=== PATIENT | male | born 1955 | race Caucasian/White ===

== ENCOUNTER 2018-08-16 02:41 | Inpatient (IN) | payer OTHER ==
[2018-08-16] MEDS ORDERED: Sodium Chloride 0.9% 10 ML Syringe FLUSH PRN (03:07)
[2018-08-16] MEDS ORDERED: Acetaminophen 500 MG Tab PO ONE (03:10)
[2018-08-16] MEDS ORDERED: Sodium Chloride 0.9% 500 ML IV ONE (03:19)
[2018-08-16 04:00] LABS: CHLORIDE,CL 105 mmol/L (98-107); SODIUM,NA 145 mmol/L (136-145)
[2018-08-16 04:09] LABS: ANION GAP 14.9 mmol/L (10-20)
[2018-08-16] MEDS ORDERED: cefTRIAXone 2 GM Vial IVPUSH ONE (04:28)
--- NOTE | 2018-08-16 05:45 | EDM.PDOC ---
ED HPI GENERAL MEDICAL PROBLEM - General Chief Complaint: Chest Pain Stated Complaint: Chest Pain / Chills Time Seen by Provider: 08/16/18 02:57 Source of Information: Reports: Patient History Limitations: Reports: No Limitations - History of Present Illness INITIAL COMMENTS - FREE TEXT/NARRATIVE: Pt. presents to ER with complaints of fever, chills, and respirophasic chest discomfort as well as erythema to his R medial ankle. Pt. states that he has a history of cellulitis in this area of the ankle in the past and states that it was treated with oral antibiotics as an outpatient. Pt. states that the area is always slightly erythematous, but he states over the past several days the area has become exquisitely tender, firm and warm to the touch. He states that he developed chills and rigors early this AM. Pt. states that he had a cough last week as well, however the patient does not feel that this is the case. He states that when the rigors started this AM and the chest discomfort started at about 8 PM last night. He states that the chest discomfort is worse with deep breathing and movement. Pt. states that he was down in [place] in various areas the second week of this month for work. 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 He states that he was quite run down after this trip which he attributed to long days, driving, and camping outside. Pt. states that he work at about 2 this AM, profusely diaphoretic and chilled. He immediately came to the ER. Denies any productive cough today. No radiation of the pain into the jaw, arms, neck or back. Denies any nausea, vomiting, or diarrhea. No abdominal pain. Denies dysuria. No pyuria or hematuria. Denies any rash or skin structure abnormality other than to that of the medial ankle. Onset Date: 08/15/18 Location: Reports: Chest, Lower Extremity, Right Treatments TECHNICAL MGR: Reports: Aspirin Chest Pain Score (Numeric/FACES): 7 - Related Data Allergies Allergy/AdvReac Type Severity Reaction Status Date / Time HAY FEVER Allergy Other Uncoded 08/16/18 02:56 Home Meds: Home Meds Aspirin [Halfprin] 81 mg PO DAILY 10/29/17 [History] Mometasone Furoate [Nasonex] 1 spray NASBOTH DAILY 10/29/17 [History] Naproxen Sodium [Aleve] 220 mg PO BID PRN 10/29/17 [History] atorvaSTATin [Lipitor] 10 mg PO BEDTIME 10/29/17 [History] Past Medical History HEENT History: Reports: Allergic Rhinitis, Hard of Hearing Cardiovascular History: Reports: Arrhythmia, High Cholesterol Other Cardiovascular History: Staes remote HX of arrhythmias years ago Respiratory History: Reports: TB Gastrointestinal History: Reports: GERD, Other (See Below) Other Gastrointestinal History: DYSPHAGIA Genitourinary History: Reports: None Musculoskeletal History: Reports: Other (See Below) Other Musculoskeletal History: ARTHRALGIA. PLANTAR FASCIITIS Neurological History: Reports: Migraines Psychiatric History: Reports: None Endocrine/Metabolic History: Reports: Obesity/BMI 30+ Hematologic History: Reports: None Immunologic History: Reports: None Oncologic (Cancer) History: Reports: None, Squamous Cell Carcinoma Dermatologic History: Reports: Other (See Below) Other Dermatologic History: ONYCHOMYCOSIS - Past Surgical History Head Surgeries/Procedures: Reports: None Cardiovascular Surgical History: Reports: None GI Surgical History: Reports: None Endocrine Surgical History: Reports: None Musculoskeletal Surgical History: Reports: Joint Replacement, Knee Replacement Social & Family History - Tobacco Use Smoking Status *Q: Never Smoker - Recreational Drug Use Recreational Drug Use: No ED ROS GENERAL - Review of Systems Review Of Systems: See Below Constitutional: Reports: Fever, Chills, Malaise, Diaphoresis HEENT: Reports: No Symptoms. Denies: Rhinitis, Sinus Problem, Throat Pain, Throat Swelling, Vertigo Respiratory: Reports: Pleuritic Chest Pain, Cough Cardiovascular: Reports: Chest Pain. Denies: Dyspnea on Exertion, Lightheadedness, Orthopnea, Palpitations, PND, Syncope Endocrine: Reports: No Symptoms GI/Abdominal: Reports: No Symptoms : Reports: No Symptoms. Denies: Dysuria, Flank Pain, Hematuria, Urgency Musculoskeletal: Reports: Other (See HPI) Skin: Reports: Erythema (R medial ankle) Neurological: Reports: No Symptoms Psychiatric: Reports: No Symptoms Hematologic/Lymphatic: Reports: No Symptoms Immunologic: Reports: No Symptoms ED EXAM, GENERAL - Physical Exam Exam: See Below Exam Limited By: No Limitations General Appearance: Alert, WD/WN, No Apparent Distress Eye Exam: Bilateral Eye: EOMI, PERRL Throat/Mouth: Normal Inspection, Normal Lips, Normal Teeth, Normal Gums, Normal Oropharynx, Normal Voice, No Airway Compromise Head: Atraumatic, Normocephalic Neck: Normal Inspection, Supple, Non-Tender, Full Range of Motion Respiratory/Chest: No Respiratory Distress, Normal Breath Sounds, Other ( crackles in the bases, increased chest tenderness with palpation of the anterior chest) Cardiovascular: Normal Peripheral Pulses, Regular Rate, Rhythm, No Edema, No Murmur Peripheral Pulses: 3+: Radial (L), Radial (R), Dorsalis Pedis (L), Dorsalis Pedis (R) GI/Abdominal: Normal Bowel Sounds, Soft, Non-Tender, No Organomegaly, No Distention, No Mass (Male) Exam: Deferred Rectal (Males) Exam: Deferred Back Exam: Normal Inspection, Full Range of Motion Extremities: Leg Pain, Increased Warmth, Redness, Other (area of confluent erythema noted and outlined in ink to R medial ankle. No obvious abscess formation. Area is quite tender to palpation.) Neurological: Alert, Oriented, CN II-XII Intact, Normal Cognition, Normal Gait, Normal Reflexes, No Motor/Sensory Deficits Psychiatric: Normal Affect, Normal Mood Skin Exam: Erythema (as above) Lymphatic: No Adenopathy EKG INTERPRETATION Rhythm: NSR Platina: Normal P-Wave: Present QRS: Normal ST-T: Normal QT: Normal EKG Interpretation Comments: Initial EKG quality was poor due to patient movement/rigors. The computer indicated a possible old septal infarct but this was not evident on the repeat exam. He unfortunately has not had any previous EKG in the clinic. Course - Vital Signs Last Recorded V/S: Last Vital Signs Temp 39.4 C H 08/16/18 04:22 Pulse 88 08/16/18 04:22 Resp 18 08/16/18 04:22 BP 144/78 H 08/16/18 04:22 Pulse Ox 93 L 08/16/18 04:22 - Orders/Labs/Meds Orders: Active Orders 24 hr Category Date Time Status Patient Status [ADT] Routine ADT 08/16/18 05:09 Active EKG Documentation Completion [RC] STAT Care 08/16/18 03:08 Active EKG Documentation Completion [RC] STAT Care 08/16/18 04:42 Active Chest 2V [CR] Stat Exams 08/16/18 03:07 Taken CULTURE BLOOD [BC] Stat Lab 08/16/18 03:13 Results CULTURE BLOOD [BC] Stat Lab 08/16/18 04:06 Received Sodium Chloride 0.9% [Saline Flush] Med 08/16/18 03:07 Active 10 ml FLUSH ASDIRECTED PRN Blood Culture x2 Reflex Set [OM.PC] Stat Oth 08/16/18 03:08 Ordered Peripheral IV Insertion Adult [OM.PC] Routine Oth 08/16/18 03:08 Ordered Medication Orders Acetaminophen (Tylenol Extra Strength) 1,000 mg PO Q6H PRN PRN Reason: Fever Ceftriaxone Sodium (Rocephin) 2 gm IVPUSH DAILY MARY Enoxaparin Sodium (Lovenox) 40 mg SUBCUT DAILY MARY Ibuprofen (Motrin) 600 mg PO Q6H PRN PRN Reason: Pain/Fever Sodium Chloride (Saline Flush) 10 ml FLUSH ASDIRECTED PRN PRN Reason: Keep Vein Open Labs: Laboratory Tests 08/16/18 08/16/18 08/16/18 Range/Units 03:13 03:13 03:24 WBC (4.0-10.0) x10^3/uL RBC (4.5-6.0) x10^6/uL Hgb (14.0-18.0) g/dL Hct (40.0-52.0) % MCV (78.0-93.0) fL MCH (26.0-32.0) pg MCHC (32.0-36.0) g/dL RDW Coeff of Jon (10.0-15.0) % Plt Count (130-400) x10^3/uL Add Manual Diff Neutrophils % (Manual) (50-80) % Band Neutrophils % (0-6) % Reactive Lymphs % (0) % Monocytes % (Manual) (2-11) % Eosinophils % (Manual) (0-4) % Vacuolated Monocytes Toxic Granulation Platelet Estimate Ovalocytes PT 9.9 L (10.0-12.8) SEC INR 0.9 L (2.0-3.5) Sodium 145 (136-145) mmol/L Potassium 3.9 (3.5-5.1) mmol/L Chloride 105 (98-107) mmol/L Carbon Dioxide 29 (21-32) mmol/L Anion Gap 14.9 (10-20) mmol/L BUN 16 (7-18) mg/dL Creatinine 1.0 (0.70-1.30) mg/dL Est Cr Clr Drug Dosing TNP Estimated GFR (MDRD) > 60 Glucose 97 (74-106) mg/dL Lactic Acid (0.4-2.0) mmol/L Calcium 8.9 (8.5-10.1) mg/dL Corrected Calcium 9.06 (8.5-10.1) mg/dL Phosphorus 3.7 (2.6-4.7) mg/dL Magnesium 1.8 (1.8-2.4) mg/dL Total Bilirubin 1.0 (0.2-1.0) mg/dL AST 18 (15-37) U/L ALT 32 (16-63) U/L Alkaline Phosphatase 94 (46-116) U/L Troponin I < 0.017 (<=0.056) ng/mL C-Reactive Protein 1.4 H (<=0.9) mg/dL Total Protein 7.9 (6.4-8.2) g/dL Albumin 3.8 (3.4-5.0) g/dL Globulin 4.1 Albumin/Globulin Ratio 0.93 Urine Color Yellow (YELLOW) Urine Appearance Clear (CLEAR) Urine pH 7.0 (5.0-8.0) Ur Specific [place] 1.020 Urine Protein Negative (NEGATIVE) mg/dL Urine Glucose (UA) Negative (NEGATIVE) mg/dL Urine Ketones Negative (NEGATIVE) mg/dL Urine Occult Blood Negative (NEGATIVE) Urine Nitrite Negative (NEGATIVE) Urine Bilirubin Negative (NEGATIVE) Urine Urobilinogen 0.2 (0.2) EU/dL Ur Leukocyte Esterase Negative (NEGATIVE) Urine RBC 0-5 (NOT SEEN) /HPF Urine WBC 0-5 (NOT SEEN) /HPF Ur Squamous Epith Cells Rare (NEGATIVE) /HPF Amorphous Sediment Few Urine Bacteria Not seen (NEGATIVE) /HPF Urine Mucus Not seen (NEGATIVE) /LPF 08/16/18 08/16/18 Range/Units 04:06 04:06 WBC 18.4 H (4.0-10.0) x10^3/uL RBC 5.17 (4.5-6.0) x10^6/uL Hgb 15.0 (14.0-18.0) g/dL Hct 44.9 (40.0-52.0) % MCV 86.8 (78.0-93.0) fL MCH 29.0 (26.0-32.0) pg MCHC 33.4 (32.0-36.0) g/dL RDW Coeff of Jon 13.7 (10.0-15.0) % Plt Count 249 (130-400) x10^3/uL Add Manual Diff Yes Neutrophils % (Manual) 85 H (50-80) % Band Neutrophils % 2 (0-6) % Reactive Lymphs % 5 H (0) % Monocytes % (Manual) 7 (2-11) % Eosinophils % (Manual) 1 (0-4) % Vacuolated Monocytes Rare Toxic Granulation Rare Platelet Estimate Adequate Ovalocytes Rare PT (10.0-12.8) SEC INR (2.0-3.5) Sodium (136-145) mmol/L Potassium (3.5-5.1) mmol/L Chloride (98-107) mmol/L Carbon Dioxide (21-32) mmol/L Anion Gap (10-20) mmol/L BUN (7-18) mg/dL Creatinine (0.70-1.30) mg/dL Est Cr Clr Drug Dosing Estimated GFR (MDRD) Glucose (74-106) mg/dL Lactic Acid 1.7 (0.4-2.0) mmol/L Calcium (8.5-10.1) mg/dL Corrected Calcium (8.5-10.1) mg/dL Phosphorus (2.6-4.7) mg/dL Magnesium (1.8-2.4) mg/dL Total Bilirubin (0.2-1.0) mg/dL AST (15-37) U/L ALT (16-63) U/L Alkaline Phosphatase (46-116) U/L Troponin I (<=0.056) ng/mL C-Reactive Protein (<=0.9) mg/dL Total Protein (6.4-8.2) g/dL Albumin (3.4-5.0) g/dL Globulin Albumin/Globulin Ratio Urine Color (YELLOW) Urine Appearance (CLEAR) Urine pH (5.0-8.0) Ur Specific [place] Urine Protein (NEGATIVE) mg/dL Urine Glucose (UA) (NEGATIVE) mg/dL Urine Ketones (NEGATIVE) mg/dL Urine Occult Blood (NEGATIVE) Urine Nitrite (NEGATIVE) Urine Bilirubin (NEGATIVE) Urine Urobilinogen (0.2) EU/dL Ur Leukocyte Esterase (NEGATIVE) Urine RBC (NOT SEEN) /HPF Urine WBC (NOT SEEN) /HPF Ur Squamous Epith Cells (NEGATIVE) /HPF Amorphous Sediment Urine Bacteria (NEGATIVE) /HPF Urine Mucus (NEGATIVE) /LPF Meds: Medications Generic Name Dose Route Start Last Admin Trade Name Freq PRN Reason Stop Dose Admin Acetaminophen 1,000 mg 08/16/18 06:04 Tylenol Extra Strength PO Q6H PRN Fever Ceftriaxone Sodium 2 gm 08/17/18 05:00 Rocephin IVPUSH DAILY MARY Enoxaparin Sodium 40 mg 08/16/18 08:00 Lovenox SUBCUT DAILY MARY Ibuprofen 600 mg 08/16/18 06:05 Motrin PO Q6H PRN Pain/Fever Sodium Chloride 10 ml 08/16/18 03:07 Saline Flush FLUSH ASDIRECTED PRN Keep Vein Open Discontinued Medications Generic Name Dose Route Start Last Admin Trade Name Freq PRN Reason Stop Dose Admin Acetaminophen 1,000 mg 08/16/18 03:10 08/16/18 03:25 Tylenol Extra Strength PO 08/16/18 03:11 1,000 mg ONETIME ONE Administration Ceftriaxone Sodium 2 gm 08/16/18 04:28 08/16/18 04:34 Rocephin IVPUSH 08/16/18 04:29 2 gm STAT ONE Administration Sodium Chloride 500 mls @ 500 mls/hr 08/16/18 03:19 08/16/18 03:35 Normal Saline IV 08/16/18 04:18 500 mls/hr ONETIME ONE Administration - Radiology Interpretation Free Text/Narrative:: Atelectasis noted to both lower lobes. No obvious infiltrate, failure pattern, or pleural effusion noted. - Re-Assessments/Exams Free Text/Narrative Re-Assessment/Exam: Pt. was given rocephin 2 gm IV. He was given NS 1 liter IV in ER and was given acetaminophen 1 gm orally. He reported feeling somewhat better at time of admission. Departure - Departure Time of Disposition: 05:30 Disposition: Admitted As Inpatient 67 Clinical Impression: Pneumonia, Cellulitis of ankle - Discharge Information - My Orders Last 24 Hours: My Active Orders 08/16/18 03:07 Chest 2V [CR] Stat Sodium Chloride 0.9% [Saline Flush] 10 ml FLUSH ASDIRECTED PRN 08/16/18 03:08 EKG Documentation Completion [RC] STAT Blood Culture x2 Reflex Set [OM.PC] Stat Peripheral IV Insertion Adult [OM.PC] Routine 08/16/18 03:13 CULTURE BLOOD [BC] Stat 08/16/18 04:06 CULTURE BLOOD [BC] Stat 08/16/18 04:42 EKG Documentation Completion [RC] STAT 08/16/18 05:09 Patient Status [ADT] Routine - Assessment/Plan Admission H&P: Please use this note as an admission H&P Last 24 Hours: My Active Orders 08/16/18 03:07 Chest 2V [CR] Stat Sodium Chloride 0.9% [Saline Flush] 10 ml FLUSH ASDIRECTED PRN 08/16/18 03:08 EKG Documentation Completion [RC] STAT Blood Culture x2 Reflex Set [OM.PC] Stat Peripheral IV Insertion Adult [OM.PC] Routine 08/16/18 03:13 CULTURE BLOOD [BC] Stat 08/16/18 04:06 CULTURE BLOOD [BC] Stat 08/16/18 04:42 EKG Documentation Completion [RC] STAT 08/16/18 05:09 Patient Status [ADT] Routine Plan: Discussed findings with patient and family. He will be admitted acutely. WBCs were greater than 18,000 with left shift and his temp was greater than 102 shortly after admission. His lactate is normal, CRP is mildly elevated. The etiology of this inflammatory response could be to early pneumonia or less likely cellulitis of the ankle. Pt. states that the area of cellulitis is similar in appearance and size to previous episode and chronic inflammation, but it is more tender and warm to the touch. He does not have any chest pain at rest but does with palpation and deep breathing/movement. Will start the patient on rocephin 2 gm IV every 24 hours. The area of cellulitis was outlined in ink and will need to be monitored in he event that the pathogen causing the cellulitis is a resistant bacteria. Will repeat chest x-ray in the AM and trend his troponin and lactic acid at 11:00 am. Pt. has not been worked up for vascular insufficiency and should undergo duplex ultrasound of the vasculature of his legs given the chronic inflammation in the ankle. Anticipate discharge in 24 hours pending downward trending of white count and no worsening of his other symptoms, no increase in lactic acid, etc. He is a code 1.
[2018-08-16] MEDS ORDERED: Ibuprofen 200 MG Tab PO PRN (06:05)
[2018-08-16] MEDS ORDERED: Enoxaparin 40 MG/0.4 ML Syringe SUBCUT SCH (08:00)
[2018-08-16] MEDS: Sodium Chloride 0.9% 1,000 ML IV SCH ×2 (08:59→17:21)
[2018-08-16] MEDS: Acetaminophen 500 MG Tab PO PRN ×2 (11:47→18:13)
[2018-08-16] MEDS ORDERED: Azithromycin 500 MG in Sodium Chloride 0.9% 250 ML IV SCH (12:45)
[2018-08-16 19:05] LABS: ANION GAP 16.7 mmol/L (10-20); CHLORIDE,CL 104 mmol/L (98-107); SODIUM,NA 139 mmol/L (136-145)
--- NOTE | 2018-08-16 20:38 | PCM.DCSUM1 ---
Discharge Summary - Hospital Course Brief History: Patient was admitted earlier today with suspected pneumonia and possible cellulitis of the right lower extremity. Throughout the day patient has spiked a fever of 102-103 despite given Tylenol and ibuprofen. Patient is also given 2 g Rocephin in the ER with a gram of acetaminophen. After being admitted patient was given azithromycin 500 mg of vancomycin 1,500 mg. patient continues to spike temperatures and his redness on his lower extremity has extenuated all the way up to his knee.Patient would like to be transported to a higher level care for further medical management. Patient was told the past that if he had any more cellulitis of the lower extremities are neurovascularly intervene and evaluate. Contact was made with [facility]. Patient will be transferred via S for further medical management and treatment. Diagnosis: Stroke: No Modified Simi Scale: No Symptoms at All Modified Simi Scale Score: 0 - Discharge Data Discharge Date: 08/16/18 Discharge Disposition: DC/Tfer to Acute Hospital 02 Condition: Good - Discharge Diagnosis/Problem(s) (1) Cellulitis of ankle SNOMED Code(s): 28251253 ICD Code: L03.119 - CELLULITIS OF UNSPECIFIED PART OF LIMB Status: Acute Current Visit: Yes (2) Pneumonia SNOMED Code(s): 166112003 ICD Code: J18.9 - PNEUMONIA, UNSPECIFIED ORGANISM Status: Acute Current Visit: Yes Qualifiers: Laterality: unspecified laterality Lung location: lower lobe of lung - Discharge Plan *PRESCRIPTION DRUG MONITORING PROGRAM REVIEWED*: Not Applicable *COPY OF PRESCRIPTION DRUG MONITORING REPORT IN PATIENT YARA: Not Applicable Home Medications: Home Meds Mometasone Furoate [Nasonex] 1 spray NASBOTH DAILY 10/29/17 [History] Naproxen Sodium [Aleve] 220 mg PO BID PRN 10/29/17 [History] atorvaSTATin [Lipitor] 10 mg PO BEDTIME 10/29/17 [History] Omeprazole 20 mg PO DAILY 08/16/18 [History] Forms: ED Department Discharge, Interfacility Transfer EMTALA Referrals: Sandip Arguelles MD [Primary Care Provider] - - Discharge Summary/Plan Comment DC Time >30 min.: No - General Info Date of Service: 08/16/18 Functional Status: Reports: Pain Controlled, Tolerating Diet - Review of Systems General: Reports: Fever, Fatigue, Malaise, Chills HEENT: Reports: No Symptoms Pulmonary: Reports: No Symptoms Cardiovascular: Reports: No Symptoms Gastrointestinal: Reports: No Symptoms Genitourinary: Reports: No Symptoms Musculoskeletal: Reports: Leg Pain, Foot Pain Skin: Reports: Other (right lower extremity- erythemia, warmth, redness) Psychiatric: Reports: No Symptoms - Patient Data Vitals - Most Recent: Last Vital Signs Temp 37.7 C 08/16/18 18:00 Pulse 77 08/16/18 18:00 Resp 20 08/16/18 06:00 BP 144/65 H 08/16/18 18:00 Pulse Ox 97 08/16/18 18:00 Weight - Most Recent: 120.202 kg I&O - Last 24 hours: Intake & Output 08/16/18 08/16/18 08/16/18 06:59 14:59 22:59 Intake Total 240 3364 Output Total 2000 Balance 240 1364 Lab Results - Last 24 hrs: Laboratory Results - last 24 hr 08/16/18 08/16/18 08/16/18 Range/Units 03:13 03:13 03:24 WBC (4.0-10.0) x10^3/uL RBC (4.5-6.0) x10^6/uL Hgb (14.0-18.0) g/dL Hct (40.0-52.0) % MCV (78.0-93.0) fL MCH (26.0-32.0) pg MCHC (32.0-36.0) g/dL RDW Coeff of Jon (10.0-15.0) % Plt Count (130-400) x10^3/uL Neut % (Auto) (50.0-80.0) % Lymph % (Auto) (25.0-50.0) % Luce % (Auto) (2.0-11.0) % Eos % (Auto) (0.0-4.0) % Baso % (Auto) (0.2-1.2) % Add Manual Diff Neutrophils % (Manual) (50-80) % Band Neutrophils % (0-6) % Reactive Lymphs % (0) % Monocytes % (Manual) (2-11) % Eosinophils % (Manual) (0-4) % Vacuolated Monocytes Toxic Granulation Platelet Estimate Ovalocytes PT 9.9 L (10.0-12.8) SEC INR 0.9 L (2.0-3.5) Sodium 145 (136-145) mmol/L Potassium 3.9 (3.5-5.1) mmol/L Chloride 105 (98-107) mmol/L Carbon Dioxide 29 (21-32) mmol/L Anion Gap 14.9 (10-20) mmol/L BUN 16 (7-18) mg/dL Creatinine 1.0 (0.70-1.30) mg/dL Est Cr Clr Drug Dosing TNP Estimated GFR (MDRD) > 60 Glucose 97 (74-106) mg/dL Lactic Acid (0.4-2.0) mmol/L Calcium 8.9 (8.5-10.1) mg/dL Corrected Calcium 9.06 (8.5-10.1) mg/dL Phosphorus 3.7 (2.6-4.7) mg/dL Magnesium 1.8 (1.8-2.4) mg/dL Total Bilirubin 1.0 (0.2-1.0) mg/dL AST 18 (15-37) U/L ALT 32 (16-63) U/L Alkaline Phosphatase 94 (46-116) U/L Troponin I < 0.017 (<=0.056) ng/mL C-Reactive Protein 1.4 H (<=0.9) mg/dL Total Protein 7.9 (6.4-8.2) g/dL Albumin 3.8 (3.4-5.0) g/dL Globulin 4.1 Albumin/Globulin Ratio 0.93 Urine Color Yellow (YELLOW) Urine Appearance Clear (CLEAR) Urine pH 7.0 (5.0-8.0) Ur Specific [place] 1.020 Urine Protein Negative (NEGATIVE) mg/dL Urine Glucose (UA) Negative (NEGATIVE) mg/dL Urine Ketones Negative (NEGATIVE) mg/dL Urine Occult Blood Negative (NEGATIVE) Urine Nitrite Negative (NEGATIVE) Urine Bilirubin Negative (NEGATIVE) Urine Urobilinogen 0.2 (0.2) EU/dL Ur Leukocyte Esterase Negative (NEGATIVE) Urine RBC 0-5 (NOT SEEN) /HPF Urine WBC 0-5 (NOT SEEN) /HPF Ur Squamous Epith Cells Rare (NEGATIVE) /HPF Amorphous Sediment Few Urine Bacteria Not seen (NEGATIVE) /HPF Urine Mucus Not seen (NEGATIVE) /LPF 08/16/18 08/16/18 08/16/18 Range/Units 04:06 04:06 11:01 WBC 18.4 H (4.0-10.0) x10^3/uL RBC 5.17 (4.5-6.0) x10^6/uL Hgb 15.0 (14.0-18.0) g/dL Hct 44.9 (40.0-52.0) % MCV 86.8 (78.0-93.0) fL MCH 29.0 (26.0-32.0) pg MCHC 33.4 (32.0-36.0) g/dL RDW Coeff of Jon 13.7 (10.0-15.0) % Plt Count 249 (130-400) x10^3/uL Neut % (Auto) (50.0-80.0) % Lymph % (Auto) (25.0-50.0) % Luce % (Auto) (2.0-11.0) % Eos % (Auto) (0.0-4.0) % Baso % (Auto) (0.2-1.2) % Add Manual Diff Yes Neutrophils % (Manual) 85 H (50-80) % Band Neutrophils % 2 (0-6) % Reactive Lymphs % 5 H (0) % Monocytes % (Manual) 7 (2-11) % Eosinophils % (Manual) 1 (0-4) % Vacuolated Monocytes Rare Toxic Granulation Rare Platelet Estimate Adequate Ovalocytes Rare PT (10.0-12.8) SEC INR (2.0-3.5) Sodium (136-145) mmol/L Potassium (3.5-5.1) mmol/L Chloride (98-107) mmol/L Carbon Dioxide (21-32) mmol/L Anion Gap (10-20) mmol/L BUN (7-18) mg/dL Creatinine (0.70-1.30) mg/dL Est Cr Clr Drug Dosing Estimated GFR (MDRD) Glucose (74-106) mg/dL Lactic Acid 1.7 1.7 (0.4-2.0) mmol/L Calcium (8.5-10.1) mg/dL Corrected Calcium (8.5-10.1) mg/dL Phosphorus (2.6-4.7) mg/dL Magnesium (1.8-2.4) mg/dL Total Bilirubin (0.2-1.0) mg/dL AST (15-37) U/L ALT (16-63) U/L Alkaline Phosphatase (46-116) U/L Troponin I (<=0.056) ng/mL C-Reactive Protein (<=0.9) mg/dL Total Protein (6.4-8.2) g/dL Albumin (3.4-5.0) g/dL Globulin Albumin/Globulin Ratio Urine Color (YELLOW) Urine Appearance (CLEAR) Urine pH (5.0-8.0) Ur Specific [place] Urine Protein (NEGATIVE) mg/dL Urine Glucose (UA) (NEGATIVE) mg/dL Urine Ketones (NEGATIVE) mg/dL Urine Occult Blood (NEGATIVE) Urine Nitrite (NEGATIVE) Urine Bilirubin (NEGATIVE) Urine Urobilinogen (0.2) EU/dL Ur Leukocyte Esterase (NEGATIVE) Urine RBC (NOT SEEN) /HPF Urine WBC (NOT SEEN) /HPF Ur Squamous Epith Cells (NEGATIVE) /HPF Amorphous Sediment Urine Bacteria (NEGATIVE) /HPF Urine Mucus (NEGATIVE) /LPF 08/16/18 08/16/18 08/16/18 Range/Units 11:01 18:34 18:34 WBC 22.0 H* (4.0-10.0) x10^3/uL RBC 4.93 (4.5-6.0) x10^6/uL Hgb 14.4 (14.0-18.0) g/dL Hct 43.1 (40.0-52.0) % MCV 87.4 (78.0-93.0) fL MCH 29.2 (26.0-32.0) pg MCHC 33.4 (32.0-36.0) g/dL RDW Coeff of Jon 14.0 (10.0-15.0) % Plt Count 190 (130-400) x10^3/uL Neut % (Auto) 92.7 H (50.0-80.0) % Lymph % (Auto) 5.1 L (25.0-50.0) % Luce % (Auto) 2.0 (2.0-11.0) % Eos % (Auto) 0.0 (0.0-4.0) % Baso % (Auto) 0.2 (0.2-1.2) % Add Manual Diff Neutrophils % (Manual) (50-80) % Band Neutrophils % (0-6) % Reactive Lymphs % (0) % Monocytes % (Manual) (2-11) % Eosinophils % (Manual) (0-4) % Vacuolated Monocytes Toxic Granulation Platelet Estimate Ovalocytes PT (10.0-12.8) SEC INR (2.0-3.5) Sodium 139 (136-145) mmol/L Potassium 3.7 (3.5-5.1) mmol/L Chloride 104 (98-107) mmol/L Carbon Dioxide 22 (21-32) mmol/L Anion Gap 16.7 (10-20) mmol/L BUN 15 (7-18) mg/dL Creatinine 1.2 (0.70-1.30) mg/dL Est Cr Clr Drug Dosing 72.13 Estimated GFR (MDRD) > 60 Glucose 108 H (74-106) mg/dL Lactic Acid (0.4-2.0) mmol/L Calcium 8.3 L (8.5-10.1) mg/dL Corrected Calcium 8.94 (8.5-10.1) mg/dL Phosphorus (2.6-4.7) mg/dL Magnesium (1.8-2.4) mg/dL Total Bilirubin 1.4 H (0.2-1.0) mg/dL AST 21 (15-37) U/L ALT 29 (16-63) U/L Alkaline Phosphatase 78 (46-116) U/L Troponin I < 0.017 (<=0.056) ng/mL C-Reactive Protein (<=0.9) mg/dL Total Protein 6.9 (6.4-8.2) g/dL Albumin 3.2 L (3.4-5.0) g/dL Globulin 3.7 Albumin/Globulin Ratio 0.86 Urine Color (YELLOW) Urine Appearance (CLEAR) Urine pH (5.0-8.0) Ur Specific [place] Urine Protein (NEGATIVE) mg/dL Urine Glucose (UA) (NEGATIVE) mg/dL Urine Ketones (NEGATIVE) mg/dL Urine Occult Blood (NEGATIVE) Urine Nitrite (NEGATIVE) Urine Bilirubin (NEGATIVE) Urine Urobilinogen (0.2) EU/dL Ur Leukocyte Esterase (NEGATIVE) Urine RBC (NOT SEEN) /HPF Urine WBC (NOT SEEN) /HPF Ur Squamous Epith Cells (NEGATIVE) /HPF Amorphous Sediment Urine Bacteria (NEGATIVE) /HPF Urine Mucus (NEGATIVE) /LPF STEVENSON Results - Last 24 hrs: Microbiology 08/16/18 03:13 Anaerobic Blood Culture - Final Blood - Venous Med Orders - Current: Current Medications Acetaminophen (Tylenol Extra Strength) 1,000 mg PO Q6H PRN PRN Reason: Fever Last Admin: 08/16/18 18:13 Dose: 1,000 mg Ceftriaxone Sodium (Rocephin) 2 gm IVPUSH DAILY [facility] Enoxaparin Sodium (Lovenox) 40 mg SUBCUT DAILY [facility] Last Admin: 08/16/18 08:59 Dose: 40 mg Sodium Chloride (Normal Saline) 1,000 mls @ 125 mls/hr IV ASDIRECTED [facility] Last Admin: 08/16/18 17:21 Dose: 125 mls/hr Azithromycin 500 mg/ Sodium (Chloride) 250 mls @ 250 mls/hr IV DAILY [facility] Last Admin: 08/16/18 13:03 Dose: 250 mls/hr Vancomycin HCl 1.75 gm/ Sodium (Chloride) 250 mls @ 143 mls/hr IV Q12H [facility] Last Admin: 08/16/18 19:13 Dose: 143 mls/hr Ibuprofen (Motrin) 600 mg PO Q6H PRN PRN Reason: Pain/Fever Sodium Chloride (Saline Flush) 10 ml FLUSH ASDIRECTED PRN PRN Reason: Keep Vein Open Discontinued Medications Acetaminophen (Tylenol Extra Strength) 1,000 mg PO ONETIME ONE Stop: 08/16/18 03:11 Last Admin: 08/16/18 03:25 Dose: 1,000 mg Ceftriaxone Sodium (Rocephin) 2 gm IVPUSH STAT ONE Stop: 08/16/18 04:29 Last Admin: 08/16/18 04:34 Dose: 2 gm Sodium Chloride (Normal Saline) 500 mls @ 500 mls/hr IV ONETIME ONE Stop: 08/16/18 04:18 Last Admin: 08/16/18 03:35 Dose: 500 mls/hr - Exam General: Reports: Alert, Oriented HEENT: Reports: Pupils Equal, Pupils Reactive, EOMI Neck: Reports: Supple Lungs: Reports: Clear to Auscultation, Normal Respiratory Effort Cardiovascular: Reports: Regular Rate, Regular Rhythm GI/Abdominal Exam: Normal Bowel Sounds, Soft, Non-Tender, No Distention, No Abnormal Bruit Back Exam: Reports: Normal Inspection, Full Range of Motion Extremities: Normal Inspection, Normal Range of Motion, Non-Tender, No Pedal Edema Skin: Reports: Warm, Dry, Intact Neurological: Reports: No New Focal Deficit Psy/Mental Status: Reports: Alert, Normal Affect, Normal Mood
[2018-08-17] MEDS ORDERED: cefTRIAXone 2 GM Vial IVPUSH SCH (05:00)
--- NOTE | 2018-08-18 09:08 | CR ---
[id number] RAD/RAD Chest PA And Lateral EXAM: RAD Chest PA And Lateral INDICATION: SYNCOPE, BRADYCARDIA COMPARISON: None. DISCUSSION: Cardiomediastinal silhouette is at the upper limits of normal in size. The aorta is elongated. No infiltrate, effusion, pneumothorax, or edema. Bibasilar subsegmental atelectasis IMPRESSION: No acute cardiopulmonary abnormality. Senthil Luna DO 08/18/18 0907 Thank you for allowing us to participate in the care of your patient.
== END 2018-08-16 21:30 | disposition short-term general hospital (02) | DRG 602 ==
LOC: VM.ED 02:41 → UNDOADMIN 05:13 → VM.MS 05:13 → UNDODISIN 21:30
PROVIDERS: ADMIT Physician Assistant; ATTEND Family Medicine
DX: L03.115 Cellulitis of right lower limb (principal); J18.1 Lobar pneumonia, unspecified organism; E78.00 Pure hypercholesterolemia, unspecified; K21.9 Gastro-esophageal reflux disease without esophagitis; G43.909 Migraine, unspecified, not intractable, without status migrainosus; E66.9 Obesity, unspecified; Z96.659 Presence of unspecified artificial knee joint; Z79.82 Long term (current) use of aspirin; Z79.899 Other long term (current) drug therapy; Z68.35 Body mass index [BMI] 35.0-35.9, adult
CPT/HCPCS: 36415; 71046; 80053; 81001; 83605; 83735; 84100; 84484; 85025; 85610; 86140; 87040; 93005; 96365; 96366; 96375; 99285-25; A9270-GY; J0456; J0696; J1650; J3370; J7030; J7040; J7050

== ENCOUNTER 2021-04-12 16:42 | Emergency (ER) | payer OTHER ==
[2021-04-12] MEDS ORDERED: Heparin Sodium 5,000 Units/ML Vial IVPUSH ONE (16:48)
[2021-04-12] MEDS ORDERED: Sodium Chloride 0.9% 10 ML Syringe FLUSH PRN (16:48)
[2021-04-12] MEDS ORDERED: Sodium Chloride 0.9% 1,000 ML IV ONE (16:52)
[2021-04-12] MEDS ORDERED: Heparin Sodium/0.45% NaCl 25,000 UNITS/500 ML BAG IV SCH ×2 (17:00→17:30)
--- NOTE | 2021-04-12 17:47 | EDM.PDOC ---
ED HPI GENERAL MEDICAL PROBLEM - General Stated Complaint: SOB FATIGUE Time Seen by Provider: 04/12/21 17:30 Source of Information: Reports: Patient, Old Records History Limitations: Reports: No Limitations - History of Present Illness INITIAL COMMENTS - FREE TEXT/NARRATIVE: Patient is transferred to the ED from the clinic for heparin infusion prior to transfer to [facility]. Patient recently returned from [place] by car ( 17 hours) and shortly there after developed shortness of breath with exertion and fatigue. he had been battling uri symptoms and keeps testing negative or covid. He denies any liberal use of alcohol, no drug use. He has been more short of breath in the last two days and decided to go to his physician. Today at the clinic he was found to be in atrial fibrillation with a rate of 80-105. HIs troponin was found to be elevated to 972. negative ddimer, and unremarkable other labs. PCP did attempt to arrange direct transfer [facility] from the clinic but hospitalist Dr. Mcgill wanted another ekg ad heparin bolus with infusion started prior to leaving. He states he was tested with rapid covid earlier today. no chest pain. Duration: Day(s): - Related Data Allergies Allergy/AdvReac Type Severity Reaction Status Date / Time HAY FEVER Allergy Other Uncoded 04/12/21 17:56 Home Meds: Home Meds Famotidine 20 mg BID 04/12/21 [History] Losartan [Cozaar] 50 mg DAILY 04/12/21 [History] atorvaSTATin [Lipitor] 20 mg PO DAILY 04/12/21 [History] Past Medical History HEENT History: Reports: Allergic Rhinitis, Hard of Hearing Cardiovascular History: Reports: Arrhythmia, High Cholesterol Other Cardiovascular History: [place] remote HX of arrhythmias years ago Respiratory History: Reports: TB Gastrointestinal History: Reports: GERD, Other (See Below) Other Gastrointestinal History: DYSPHAGIA Genitourinary History: Reports: None Musculoskeletal History: Reports: Other (See Below) Other Musculoskeletal History: ARTHRALGIA. PLANTAR FASCIITIS Neurological History: Reports: Migraines Psychiatric History: Reports: None Endocrine/Metabolic History: Reports: Obesity/BMI 30+ Hematologic History: Reports: None Immunologic History: Reports: None Oncologic (Cancer) History: Reports: None, Squamous Cell Carcinoma Dermatologic History: Reports: Other (See Below) Other Dermatologic History: ONYCHOMYCOSIS - Past Surgical History Head Surgeries/Procedures: Reports: None Cardiovascular Surgical History: Reports: None GI Surgical History: Reports: None Endocrine Surgical History: Reports: None Musculoskeletal Surgical History: Reports: Joint Replacement, Knee Replacement Social & Family History - Tobacco Use Tobacco Use Status *Q: Never Tobacco User - Caffeine Use Caffeine Use: Reports: None - Alcohol Use Alcohol Use Frequency: Socially - Recreational Drug Use Recreational Drug Use: No Drug Use in Last 12 Months: No ED ROS GENERAL - Review of Systems Review Of Systems: See Below Constitutional: Reports: No Symptoms HEENT: Reports: No Symptoms. Denies: Throat Pain, Throat Swelling Respiratory: Reports: Shortness of Breath. Denies: Cough Cardiovascular: Reports: Dyspnea on Exertion Endocrine: Reports: Fatigue GI/Abdominal: Reports: No Symptoms : Reports: No Symptoms Musculoskeletal: Reports: No Symptoms Skin: Reports: No Symptoms Neurological: Reports: No Symptoms Psychiatric: Reports: No Symptoms ED EXAM, GENERAL - Physical Exam Exam: See Below Exam Limited By: No Limitations General Appearance: Alert, WD/WN, No Apparent Distress Eye Exam: Bilateral Eye: EOMI, Normal Inspection, PERRL Nose: Normal Inspection Throat/Mouth: Normal Inspection, Normal Lips, Normal Teeth, Normal Voice Head: Atraumatic, Normocephalic Neck: Normal Inspection Respiratory/Chest: No Respiratory Distress, Lungs Clear Cardiovascular: Irregularly Irregular (rate 80's) GI/Abdominal: Normal Bowel Sounds, Soft, Non-Tender, No Distention Extremities: Normal Inspection, Normal Range of Motion, No Pedal Edema, Normal Capillary Refill #1 Interpretation EKG Date: 04/12/21 Time: 17:44 Rhythm: A-Fib Rate (Beats/Min): 92 Hope: Other (lvh) Comparison: NA - No Prior EKG Course - Orders/Labs/Meds Orders: Active Orders 24 hr Category Date Time Status EKG Documentation Completion [RC] STAT Care 04/12/21 16:48 Active COVID-19/FLU A+B [MOLEC] Stat Lab 04/12/21 16:48 Ordered PTT,PARTIAL THROMBOPLSTIN TIME [COAG] Q6H Lab 04/12/21 17:00 Ordered PTT,PARTIAL THROMBOPLSTIN TIME [COAG] Q6H Lab 04/12/21 23:00 Ordered PTT,PARTIAL THROMBOPLSTIN TIME [COAG] Q6H Lab 04/13/21 05:00 Ordered PTT,PARTIAL THROMBOPLSTIN TIME [COAG] Q6H Lab 04/13/21 11:00 Ordered PTT,PARTIAL THROMBOPLSTIN TIME [COAG] Q6H Lab 04/13/21 17:00 Ordered PTT,PARTIAL THROMBOPLSTIN TIME [COAG] Q6H Lab 04/13/21 23:00 Ordered PTT,PARTIAL THROMBOPLSTIN TIME [COAG] Q6H Lab 04/14/21 05:00 Ordered Heparin Sodium/0.45% NaCl [Heparin 25,000 Units in 1/2 Med 04/12/21 17:30 Active NS 500 ML] 25,000 units in 500 ml IV TITRATE Sodium Chloride 0.9% [Normal Saline] 1,000 ml Med 04/12/21 16:52 Active IV ONETIME Sodium Chloride 0.9% [Saline Flush] Med 04/12/21 16:48 Active 10 ml FLUSH ASDIRECTED PRN Peripheral IV Insertion Adult [OM.PC] Routine Oth 04/12/21 16:48 Ordered Medication Orders Sodium Chloride (Normal Saline) 1,000 mls @ 125 mls/hr IV ONETIME ONE Stop: 04/13/21 00:51 Last Admin: 04/12/21 17:30 Dose: 125 mls/hr Documented by: JOSE Heparin Sodium/Sodium Chloride (Heparin 25,000 Units In 1/2 Ns 500 Ml) 25,000 units in 500 mls @ 20 mls/hr IV TITRATE [facility]; Protocol Last Admin: 04/12/21 17:38 Dose: 1,000 units/hr, 20 mls/hr Documented by: JOSE Cosigned by: JAKY Sodium Chloride (Sodium Chloride 0.9% 10 Ml Syringe) 10 ml FLUSH ASDIRECTED PRN PRN Reason: Keep Vein Open Labs: Laboratory Tests 04/12/21 Range/Units 15:12 APTT 24.5 L (25.6-32.8) SEC Meds: Medications Generic Name Dose Route Start Last Admin Trade Name Freq PRN Reason Stop Dose Admin Sodium Chloride 1,000 mls @ 125 mls/hr 04/12/21 16:52 04/12/21 17:30 Normal Saline IV 04/13/21 00:51 125 mls/hr ONETIME ONE Administration Heparin Sodium/Sodium Chloride 25,000 units in 500 mls @ 20 mls/hr 04/12/21 17:30 04/12/21 17:38 Heparin 25,000 Units In 1/2 Ns 500 Ml IV 1,000 units/hr TITRATE MARY 20 mls/hr Administration Protocol 1,000 UNITS/HR Sodium Chloride 10 ml 04/12/21 16:48 Sodium Chloride 0.9% 10 Ml Syringe FLUSH ASDIRECTED PRN Keep Vein Open Discontinued Medications Generic Name Dose Route Start Last Admin Trade Name Freq PRN Reason Stop Dose Admin Heparin Sodium (Porcine) 4,000 units 04/12/21 16:48 04/12/21 17:38 Heparin Sodium 5,000 Units/Ml Vial IVPUSH 04/12/21 16:49 4,000 units .BOLUS ONE Administration Heparin Sodium/Sodium Chloride 25,000 units in 500 mls @ 0.24 mls/hr 04/12/21 17:00 Heparin 25,000 Units In 1/2 Ns 500 Ml IV TITRATE MARY Protocol 12 UNITS/HR - Re-Assessments/Exams Free Text/Narrative Re-Assessment/Exam: 04/12/21 17:48 IV established heparin 4000 unit bolus, then 100 units per hour. rapid covid and influenza A done. CBC 11.2, hemoglobin 15.8 platelets 273, chem 8 normal potassium 4.4, troponin 972, TSH 1.187, ddimer <0.19 04/12/21 17:58 [facility] accepts for transfer. Departure - Departure Time of Disposition: 18:00 Disposition: DC/Tfer to Acute Hospital 02 Condition: Good Clinical Impression: A-fib, Elevated troponin - Discharge Information Referrals: Nancy Manriquez MD [Primary Care Provider] - Forms: Interfacility Transfer EMTALA - My Orders Last 24 Hours: My Active Orders 04/12/21 16:48 EKG Documentation Completion [RC] STAT COVID-19/FLU A+B [MOLEC] Stat Sodium Chloride 0.9% [Saline Flush] 10 ml FLUSH ASDIRECTED PRN Peripheral IV Insertion Adult [OM.PC] Routine 04/12/21 16:52 Sodium Chloride 0.9% [Normal Saline] 1,000 ml IV ONETIME 04/12/21 17:00 PTT,PARTIAL THROMBOPLSTIN TIME [COAG] Q6H 04/12/21 17:30 Heparin Sodium/0.45% NaCl [Heparin 25,000 Units in 1/2 NS 500 ML] 25,000 units in 500 ml IV TITRATE 04/12/21 23:00 PTT,PARTIAL THROMBOPLSTIN TIME [COAG] Q6H 04/13/21 05:00 PTT,PARTIAL THROMBOPLSTIN TIME [COAG] Q6H 04/13/21 11:00 PTT,PARTIAL THROMBOPLSTIN TIME [COAG] Q6H 04/13/21 17:00 PTT,PARTIAL THROMBOPLSTIN TIME [COAG] Q6H 04/13/21 23:00 PTT,PARTIAL THROMBOPLSTIN TIME [COAG] Q6H 04/14/21 05:00 PTT,PARTIAL THROMBOPLSTIN TIME [COAG] Q6H - Assessment/Plan Last 24 Hours: My Active Orders 04/12/21 16:48 EKG Documentation Completion [RC] STAT COVID-19/FLU A+B [MOLEC] Stat Sodium Chloride 0.9% [Saline Flush] 10 ml FLUSH ASDIRECTED PRN Peripheral IV Insertion Adult [OM.PC] Routine 04/12/21 16:52 Sodium Chloride 0.9% [Normal Saline] 1,000 ml IV ONETIME 04/12/21 17:00 PTT,PARTIAL THROMBOPLSTIN TIME [COAG] Q6H 04/12/21 17:30 Heparin Sodium/0.45% NaCl [Heparin 25,000 Units in 1/2 NS 500 ML] 25,000 units in 500 ml IV TITRATE 04/12/21 23:00 PTT,PARTIAL THROMBOPLSTIN TIME [COAG] Q6H 04/13/21 05:00 PTT,PARTIAL THROMBOPLSTIN TIME [COAG] Q6H 04/13/21 11:00 PTT,PARTIAL THROMBOPLSTIN TIME [COAG] Q6H 04/13/21 17:00 PTT,PARTIAL THROMBOPLSTIN TIME [COAG] Q6H 04/13/21 23:00 PTT,PARTIAL THROMBOPLSTIN TIME [COAG] Q6H 04/14/21 05:00 PTT,PARTIAL THROMBOPLSTIN TIME [COAG] Q6H
[2021-04-12 18:36] LABS: CORONAVIRUS COVID-19 NAA NEGATIVE (NEGATIVE)
== END 2021-04-12 18:33 | disposition short-term general hospital (02) ==
LOC: VM.ED 16:42
DX: I48.91 Unspecified atrial fibrillation (principal); R79.89 Other specified abnormal findings of blood chemistry; E78.00 Pure hypercholesterolemia, unspecified; E66.9 Obesity, unspecified; Z68.30 Body mass index [BMI] 30.0-30.9, adult; Z91.09 Other allergy status, other than to drugs and biological substances; Z79.899 Other long term (current) drug therapy; Z20.822 Contact with and (suspected) exposure to COVID-19
CPT/HCPCS: 0240U; 85730; 93005; 96365; 99285-25; J1644; J7030